=== PATIENT | female | born 1985 | race Caucasian/White ===

== ENCOUNTER 2022-02-07 21:59 | Emergency (ER) | payer MEDICAID | END 2022-02-07 23:06 | disposition home or self-care (01) | LOC: DL.ED 21:59 | DX: S93.602A Unspecified sprain of left foot, initial encounter (principal); F17.210 Nicotine dependence, cigarettes, uncomplicated; X50.1XXA Overexertion from prolonged static or awkward postures, initial encounter | CPT/HCPCS: 73630-LT; 99282; 99283 ==

== ENCOUNTER 2022-06-04 16:44 | Emergency (ER) | payer MEDICAID ==
[2022-06-04 18:52] LABS: CORONAVIRUS COVID-19 NAA NEGATIVE (NEGATIVE); RESPIRATORY SYNCYTIAL VIR NAA NEGATIVE (NEGATIVE)
[2022-06-04] MEDS ORDERED: Amoxicillin/Clavulanate K 875-125 MG Tab PO ONE (19:28)
== END 2022-06-04 19:36 | disposition home or self-care (01) ==
LOC: DL.ED 16:44
DX: J01.10 Acute frontal sinusitis, unspecified (principal); F17.210 Nicotine dependence, cigarettes, uncomplicated; Z88.8 Allergy status to other drugs, medicaments and biological substances; Z20.822 Contact with and (suspected) exposure to COVID-19
CPT/HCPCS: 0241U; 87081; 87430; 99283; A9270

== ENCOUNTER 2022-12-01 14:52 | Emergency (ER) | payer MEDICAID ==
[2022-12-01] MEDS ORDERED: diphenhydrAMINE 25 MG Tab PO ONE (20:08)
== END 2022-12-01 20:18 | disposition home or self-care (01) ==
LOC: DL.ED 14:52
DX: J30.9 Allergic rhinitis, unspecified (principal); Z88.8 Allergy status to other drugs, medicaments and biological substances
CPT/HCPCS: 99284; A9270-GY

== ENCOUNTER 2023-02-10 11:47 | Emergency (ER) | payer MEDICAID ==
[2023-02-10] MEDS ORDERED: Sodium Chloride 0.9% 10 ML Syringe FLUSH PRN (12:04)
[2023-02-10] MEDS ORDERED: Ondansetron 4 MG/2 ML SDV IVPUSH ONE (12:07)
[2023-02-10] MEDS ORDERED: Morphine 4 MG/ML Syringe IVPUSH ONE (12:09)
[2023-02-10 12:21] LABS: BASOPHILS PERCENT AUTO 0.2 % (0.0-1.0); EOSINOPHILS PERCENT AUTO 1.7 % (1.0-3.0); HEMOGLOBIN 13.3 g/dL (12.0-16.0); LYMPHOCYTES PERCENT AUTO 25.8 % (20.5-50.1); MEAN CORPUSCULAR HEMOGLOBIN 29.4 pg (27.0-34.0); MEAN CORPUSCULAR HGB CONC 33.3 g/dL (33.0-35.0); MEAN CORPUSCULAR VOLUME 88.3 fL (80-100); MONOCYTES PERCENT AUTO 11.8 % (2-8); NEUTROPHILS PERCENT AUTO 60.5 % (42.2-75.2); PLATELET COUNT,PLT 259 10^3/uL (150-450); RED BLOOD CELL COUNT 4.53 10^6/uL (4.2-5.4); WHITE BLOOD CELL COUNT,WBC 9.7 10^3/uL (5.0-10.0)
[2023-02-10 12:31] LABS: APPEARANCE,URINE SLIGHTLY CLOUDY (CLEAR); BILIRUBIN,URINE NEGATIVE (NEGATIVE); COLOR,URINE DARK YELLOW (YELLOW); GLUCOSE,URINE NEGATIVE (NEGATIVE); KETONES,URINE TRACE (NEGATIVE); LEUKOCYTE ESTERASE,URINE SMALL (NEGATIVE); NITRITE,URINE NEGATIVE (NEGATIVE); OCCULT BLOOD,URINE NEGATIVE (NEGATIVE); PH,URINE 5.5 (5.0-9.0); PROTEIN,URINE NEGATIVE (NEGATIVE); UROBILINOGEN,URINE 0.2 mg/dL (0.2-1.0)
[2023-02-10 12:36] LABS: AMORPHOUS SEDIMENT,URINE MODERATE /HPF (NOT SEEN); BACTERIA,URINE MANY /HPF (0-FEW/HPF); EPITHELIAL CELLS,URINE MANY /HPF (NOT SEEN); MUCUS,URINE MANY /LPF (NOT SEEN)
[2023-02-10 12:37] LABS: ANION GAP 13.8 mEq/L (7-13); CALCIUM 8.9 mg/dL (8.5-10.1); CREATININE 0.62 mg/dL (0.55-1.02); EST CRCL DRUG DOSING (CG) 101.77 mL/min; POTASSIUM,K 3.8 mmol/L (3.5-5.1)
[2023-02-10] MEDS ORDERED: Take Home: traMADol 50 MG, 4 Tab Pack PO ONE (13:10)
[2023-02-10] MEDS ORDERED: Take Home: Sulfamethoxazole/Trimethoprim 800-160 MG Tab, 6 Tab Pack PO ONE (13:10)
[2023-02-10] MEDS ORDERED: Take Home: Ondansetron 4 MG Tab.DIS, 5 Tab Pack PO ONE (13:13)
== END 2023-02-10 13:27 | disposition home or self-care (01) ==
LOC: DL.ED 11:47
DX: N39.0 Urinary tract infection, site not specified (principal); F17.210 Nicotine dependence, cigarettes, uncomplicated; Z88.8 Allergy status to other drugs, medicaments and biological substances
CPT/HCPCS: 36415; 74176; 80048; 81001; 81025; 85025; 87086; 87088; 96374; 96375; 99284; A9270; J2270; J2405; Q0162; J3490

== ENCOUNTER 2023-06-12 10:40 | Emergency (ER) | payer MEDICAID ==
[2023-06-12] MEDS ORDERED: Metoclopramide 10 MG/2 ML SDV IVPUSH ONE (11:30)
[2023-06-12] MEDS ORDERED: Sodium Chloride 0.9% 10 ML Syringe FLUSH PRN (11:30)
[2023-06-12] MEDS ORDERED: Ketorolac 30 MG/ML SDV IVPUSH ONE (11:35)
[2023-06-12] MEDS ORDERED: Sodium Chloride 0.9% 1,000 ML IV SCH (11:45)
[2023-06-12 12:25] LABS: CORONAVIRUS COVID-19 NAA NEGATIVE (NEGATIVE); INFLUENZA A NAA NEGATIVE (NEGATIVE); INFLUENZA B NAA NEGATIVE (NEGATIVE); RESPIRATORY SYNCYTIAL VIR NAA NEGATIVE (NEGATIVE)
== END 2023-06-12 13:16 | disposition home or self-care (01) ==
LOC: DL.ED 10:40
DX: G43.909 Migraine, unspecified, not intractable, without status migrainosus (principal); Z88.8 Allergy status to other drugs, medicaments and biological substances; Z20.822 Contact with and (suspected) exposure to COVID-19
CPT/HCPCS: 0241U; 96361; 96374; 96375; 99283; 99283-25; J1885; J2765; J3490; J7030

== ENCOUNTER 2023-08-22 07:48 | Emergency (ER) | payer MEDICAID ==
[2023-08-22] MEDS: Sodium Chloride 0.9% 1,000 ML IV ONE (09:12)
[2023-08-22] MEDS: Ketorolac 30 MG/ML SDV IVPUSH ONE (09:12)
[2023-08-22] MEDS: guaiFENesin/Dextromethorphan 100-10 MG/5 ML Soln 5 ML Cup PO ONE (09:16)
[2023-08-22 09:25] LABS: CORONAVIRUS COVID-19 NAA NEGATIVE (NEGATIVE); INFLUENZA A NAA POSITIVE (NEGATIVE); INFLUENZA B NAA NEGATIVE (NEGATIVE); RESPIRATORY SYNCYTIAL VIR NAA NEGATIVE (NEGATIVE)
[2023-08-22] MEDS: Benzonatate 100 MG Cap PO ONE (09:42)
[2023-08-22] MEDS: Dexamethasone 4 MG/ML SDV IVPUSH ONE (09:50)
== END 2023-08-22 10:10 | disposition home or self-care (01) ==
LOC: DL.ED 07:48
DX: J11.1 Influenza due to unidentified influenza virus with other respiratory manifestations (principal); Z88.8 Allergy status to other drugs, medicaments and biological substances; Z79.899 Other long term (current) drug therapy; Z90.49 Acquired absence of other specified parts of digestive tract
CPT/HCPCS: 0241U; 96361; 96374; 96375; 99283; 99283-25; A9270-GY; J1100; J1885; J7030

== ENCOUNTER 2024-03-13 07:02 | Emergency (ER) | payer BC, MEDICAID ==
[2024-03-13 07:40] LABS: BASOPHILS PERCENT AUTO 0.3 % (0.0-1.0); EOSINOPHILS PERCENT AUTO 3.2 % (1.0-3.0); LYMPHOCYTES PERCENT AUTO 28.9 % (20.5-50.1); MEAN CORPUSCULAR HEMOGLOBIN 28.8 pg (27.0-34.0); MEAN CORPUSCULAR HGB CONC 32.6 g/dL (33.0-35.0); MEAN CORPUSCULAR VOLUME 88.5 fL (80-100); MONOCYTES PERCENT AUTO 15.7 % (2-8); NEUTROPHILS PERCENT AUTO 51.9 % (42.2-75.2); PLATELET COUNT,PLT 254 10^3/uL (150-450); RED BLOOD CELL COUNT 4.86 10^6/uL (4.2-5.4); WHITE BLOOD CELL COUNT,WBC 6.6 10^3/uL (5.0-10.0)
[2024-03-13 07:59] LABS: A/G RATIO 0.9; ALBUMIN 3.8 g/dL (3.4-5.0); ANION GAP 11.6 mEq/L (7-13); BILIRUBIN TOTAL 0.3 mg/dL (0.2-1.0); BUN/CREATININE RATIO 14.9 (No establ ref range); CALCIUM 9.2 mg/dL (8.5-10.1); CREATININE 0.74 mg/dL (0.55-1.02); EST CRCL DRUG DOSING (CG) 84.43 mL/min; POTASSIUM,K 3.6 mmol/L (3.5-5.1); PROTEIN TOTAL,TP 7.9 g/dL (6.4-8.2)
[2024-03-13] MEDS: Ondansetron 4 MG/2 ML SDV IVPUSH ONE (08:02)
[2024-03-13 08:23] LABS: CORONAVIRUS COVID-19 NAA NEGATIVE (NEGATIVE); INFLUENZA A NAA NEGATIVE (NEGATIVE); INFLUENZA B NAA NEGATIVE (NEGATIVE)
[2024-03-13 08:35] LABS: APPEARANCE,URINE SLIGHTLY CLOUDY (CLEAR); BILIRUBIN,URINE NEGATIVE (NEGATIVE); COLOR,URINE DARK YELLOW (YELLOW); GLUCOSE,URINE NEGATIVE (NEGATIVE); KETONES,URINE NEGATIVE (NEGATIVE); LEUKOCYTE ESTERASE,URINE NEGATIVE (NEGATIVE); NITRITE,URINE NEGATIVE (NEGATIVE); OCCULT BLOOD,URINE LARGE (NEGATIVE); PROTEIN,URINE TRACE (NEGATIVE); UROBILINOGEN,URINE 0.2 mg/dL (0.2-1.0)
[2024-03-13 08:52] LABS: BACTERIA,URINE FEW /HPF (0-FEW/HPF); EPITHELIAL CELLS,URINE FEW /HPF (NOT SEEN); RBC,URINE >100 /HPF (0-5); WBC,URINE 0-5 /HPF (0-5/HPF)
[2024-03-13] MEDS: Lactated Ringers 1,000 ML IV SCH (08:58)
[2024-03-13] MEDS: Ketorolac 30 MG/ML SDV IVPUSH ONE (09:01)
== END 2024-03-13 10:43 | disposition home or self-care (01) ==
LOC: DL.ED 07:02
DX: J06.9 Acute upper respiratory infection, unspecified (principal); K59.00 Constipation, unspecified; R11.2 Nausea with vomiting, unspecified; Z79.899 Other long term (current) drug therapy; Z88.8 Allergy status to other drugs, medicaments and biological substances
CPT/HCPCS: 0240U; 36415; 71046; 74176; 80053; 81001; 83735; 85025; 96361; 96374; 96375; 99284; 99284-25; J1885; J2405; J7120

== ENCOUNTER 2024-06-18 10:36 | Emergency (ER) | payer BC | END 2024-06-18 11:42 | disposition home or self-care (01) | LOC: DL.ED 10:36 | DX: U07.1 COVID-19 (principal); J06.9 Acute upper respiratory infection, unspecified; Z90.49 Acquired absence of other specified parts of digestive tract; Z88.8 Allergy status to other drugs, medicaments and biological substances; Z79.899 Other long term (current) drug therapy | CPT/HCPCS: 87428-QW; 99283; 99284 ==

== ENCOUNTER 2024-11-03 13:56 | Emergency (ER) | payer BC | END 2024-11-03 14:33 | disposition home or self-care (01) | LOC: DL.ED 13:56 | DX: L03.311 Cellulitis of abdominal wall (principal); Z88.8 Allergy status to other drugs, medicaments and biological substances; Z79.899 Other long term (current) drug therapy | CPT/HCPCS: 99283 ==